=== PATIENT | female | born 1965 | race Caucasian/White ===

== ENCOUNTER → 2017-09-08 | Outpatient (CLI) | payer MEDICARE, OTHER ==
[2017-09-09 10:41] LABS: Candida species (DNA Probe) Negative (NEGATIVE); G. vaginalis (DNA Probe) Positive (NEGATIVE); T. vaginalis (DNA Probe) Negative (NEGATIVE)
== END ==
LOC: LAB SHORT 16:55 → LAB EV 16:55
PROVIDERS: Internal Medicine
DX: N89.8 Other specified noninflammatory disorders of vagina (principal); N30.80 Other cystitis without hematuria
CPT/HCPCS: 87086; 87480; 87510; 87660

== ENCOUNTER → 2018-06-16 | Outpatient (CLI) | payer MEDICARE, OTHER ==
[~2018-06-16] MED LIST: BACL20; CLON.5 PO; ESCI20 PO; Miralax17 GM PO; PROBIOTIC1 EAC3 PO; TECFIDERA1 EACH PO; TIZANIDINE HCL4 MG PO
[2018-06-18 12:10] LABS: Stool Occult Bld Immuno 1 Negative (NEGATIVE)
== END | disposition home or self-care (01) ==
LOC: LAB 13:57 → LAB SHORT 13:57
PROVIDERS: Internal Medicine
DX: Z12.11 Encounter for screening for malignant neoplasm of colon (principal)
CPT/HCPCS: G0328

== ENCOUNTER 2020-08-25 11:16 | Emergency (ER) | payer MEDICARE, OTHER ==
[~2020-08-25] VITALS: Ht 152.4 cm; Wt 63.5 kg
[~2020-08-25 11:16] MED LIST changes: -BACL20; +BACL20 PO; +TIZA4; -TIZANIDINE HCL4 MG PO
[2020-08-25] MEDS ORDERED: HYDR1TAB94 PO (14:06)
== END 2020-08-25 15:50 | disposition home or self-care (01) ==
LOC: ER 11:16
DX: S70.01XA Contusion of right hip, initial encounter (principal); S80.01XA Contusion of right knee, initial encounter; Z79.899 Other long term (current) drug therapy; W05.0XXA Fall from non-moving wheelchair, initial encounter
CPT/HCPCS: 73502; 73562-RT; 99283-25; A9270

== ENCOUNTER 2021-06-05 11:56 | Emergency (ER) | payer MEDICARE, OTHER ==
[~2021-06-05] VITALS: Ht 152.4 cm; Wt 65.8 kg
[~2021-06-05 11:56] MED LIST changes: +HYDR1TAB94 PO
[2021-06-05 13:11] LABS: Influenza A, PCR NEGATIVE (NEGATIVE); Influenza B, PCR NEGATIVE (NEGATIVE); Resp Syncytial Virus, PCR NEGATIVE (NEGATIVE)
[2021-06-05 13:13] LABS: SARS-Cov-2 (COVID-19) PCR, MMC POSITIVE (NEGATIVE)
== END 2021-06-05 17:23 | disposition home or self-care (01) ==
LOC: ER 11:56
PROVIDERS: Emergency Medicine
DX: U07.1 COVID-19 (principal); Z79.899 Other long term (current) drug therapy
CPT/HCPCS: 0241U; 99283

== ENCOUNTER → 2021-07-14 | Outpatient (CLI) | payer MEDICARE, OTHER ==
[2021-07-14 15:58] LABS: BASOPHILS ABSOLUTE AUTO 0.07 K/mm3 (0.00-0.23); BASOPHILS PERCENT AUTO 2 % (0-2); EOSINOPHILS ABSOLUTE AUTO 0.23 K/mm3 (0.00-0.68); EOSINOPHILS PERCENT AUTO 6 % (0-6); Hematocrit 41.6 % (33.0-51.0); Hemoglobin 12.9 g/dL (11.5-16.0); IMMATURE GRAN ABSOLUTE AUTO 0.01 K/mm3 (0.00-0.10); IMMATURE GRAN PERCENT AUTO 0 % (0-1); LYMPHOCYTES ABSOLUTE AUTO 0.87 K/mm3 (0.84-5.20); LYMPHOCYTES PERCENT AUTO 24 % (21-46); MONOCYTES ABSOLUTE AUTO 0.55 K/mm3 (0.16-1.47); MONOCYTES PERCENT AUTO 15 % (4-13); Mean Corpuscular HGB 28.8 pg (26.0-34.0); Mean Corpuscular Volume 93 fL (80-100); Mean Platelet Volume 9.7 fL (9.1-12.4); NEUTROPHILS ABSOLUTE AUTO 1.86 K/mm3 (1.96-9.15); NEUTROPHILS PERCENT AUTO 52 % (41-73); Platelet Count 323 K/mm3 (150-400); RDW Coefficient Variation 13.1 % (11.7-14.2); RDW Standard Deviation 44.3 fL (35.1-46.3); Red Blood Cell Count 4.48 M/mm3 (3.80-5.20); White Blood Cell Count 3.59 K/mm3 (4.00-11.30)
[2021-07-14 22:21] LABS: Alanine Aminotransfer (ALT/SGP 22 U/L (12-78); Albumin/Globulin Ratio 0.7 (0.8-1.8); Alk Phos 128 U/L (50-136); Anion Gap 3 mmol/L (6-16); Aspartate Aminotrans (AST/SGOT 15 U/L (12-37); Bilirubin, Total 0.2 mg/dL (0.1-1.0); Blood Urea Nitrogen 17 mg/dL (8-24); Bun/Creatinine Ratio 24.4 (12.0-20.0); CO2, Blood 31 mmol/L (21-32); Chloride, Blood 105 mmol/L (98-108); Globulin, Blood 4.4 g/dL (2.2-4.0); Glomerular Filtration Rate >60 (60-); Glucose, Blood 117 mg/dL (70-99); Potassium, Blood 3.8 mmol/L (3.5-5.5); Sodium, Blood 139 mmol/L (136-145); Total Protein, Blood 7.4 g/dL (6.4-8.2)
== END | disposition home or self-care (01) ==
LOC: LAB HH 14:42
PROVIDERS: Internal Medicine
DX: G35 Multiple sclerosis (principal); L89.152 Pressure ulcer of sacral region, stage 2
CPT/HCPCS: 80053; 85025

== ENCOUNTER 2021-09-11 17:43 | Emergency (ER) | payer MEDICARE, OTHER ==
[~2021-09-11] VITALS: Ht 152.4 cm; Wt 63.5 kg
[2021-09-11] MEDS ORDERED: Nitrofurantoin100 M1 PO (18:27)
[2021-09-11] MEDS ORDERED: DIMETHYL FUMAR240 MG PO (18:28)
[2021-09-11 18:59] LABS: Source, Urine Straight Cath
[2021-09-11 19:08] LABS: Appearance, Urine Turbid (Clear); Bilirubin, Urine Neg (Neg); Blood, Urine 5+ (Neg); Color, Urine Yellow (P-Yellow); Glucose Qualitative, Urine Neg (Neg); Ketones, Urine Neg (Neg); Leukocyte Esterase, Urine 3+ (Neg); Nitrite, Urine Neg (Neg); Protein, Urine 3+ (Neg); Specific Gravity, Urine 1.015 (1.003-1.022); Urobilinogen, Urine NORM (Normal)
[2021-09-11 19:14] LABS: Red Blood Cells, Urine TNTC /hpf (0-2); White Blood Cells, Urine TNTC /hpf (0-5)
[2021-09-11 19:15] LABS: Bacteria Many /hpf; Hyaline Casts 0-2 /lpf (0-2); Renal Epithelial Rare /hpf (0-Rare); Squamous Epithelial Cells Many /hpf (Few); Transitional Epithelial Cells Few /hpf (0-Rare)
[2021-09-11 19:32] LABS: BASOPHILS ABSOLUTE AUTO 0.05 K/mm3 (0.00-0.23); BASOPHILS PERCENT AUTO 1 % (0-2); EOSINOPHILS ABSOLUTE AUTO 0.12 K/mm3 (0.00-0.68); EOSINOPHILS PERCENT AUTO 2 % (0-6); Hemoglobin 13.8 g/dL (11.5-16.0); IMMATURE GRAN ABSOLUTE AUTO 0.08 K/mm3 (0.00-0.10); IMMATURE GRAN PERCENT AUTO 2 % (0-1); LYMPHOCYTES ABSOLUTE AUTO 0.85 K/mm3 (0.84-5.20); LYMPHOCYTES PERCENT AUTO 17 % (21-46); MONOCYTES ABSOLUTE AUTO 0.67 K/mm3 (0.16-1.47); MONOCYTES PERCENT AUTO 14 % (4-13); Mean Corpuscular HGB 29.3 pg (26.0-34.0); Mean Corpuscular HGB Conc 32.9 g/dL (31.5-36.5); Mean Corpuscular Volume 89 fL (80-100); Mean Platelet Volume 9.1 fL (9.1-12.4); NEUTROPHILS ABSOLUTE AUTO 3.16 K/mm3 (1.96-9.15); NEUTROPHILS PERCENT AUTO 64 % (41-73); Platelet Count 256 K/mm3 (150-400); RDW Coefficient Variation 12.9 % (11.7-14.2); RDW Standard Deviation 42.3 fL (35.1-46.3); Red Blood Cell Count 4.71 M/mm3 (3.80-5.20); White Blood Cell Count 4.93 K/mm3 (4.00-11.30)
[2021-09-11 19:49] LABS: Albumin/Globulin Ratio 0.6 (0.8-1.8); Bilirubin, Total 0.3 mg/dL (0.1-1.0); Bun/Creatinine Ratio 46.2 (12.0-20.0); Calcium, Blood 9.2 mg/dL (8.5-10.1); Creatinine, Blood 0.52 mg/dL (0.40-1.00); Globulin, Blood 4.9 g/dL (2.2-4.0); Potassium, Blood 4.2 mmol/L (3.5-5.5); Total Protein, Blood 7.9 g/dL (6.4-8.2)
[2021-09-11] MEDS ORDERED: CEFD300 PO (21:52)
== END 2021-09-11 22:57 | disposition home or self-care (01) ==
LOC: ER 17:43
PROVIDERS: Emergency Medicine
DX: N13.6 Pyonephrosis (principal); G35 Multiple sclerosis; Z79.899 Other long term (current) drug therapy
CPT/HCPCS: 51701; 74177; 80053; 81001; 83690; 85025; 87086; J0696; J1885; Q9967

== ENCOUNTER → 2022-02-24 | Outpatient (CLI) | payer MEDICARE, OTHER ==
[~2022-02-24] MED LIST changes: +CEFD300 PO; +DIMETHYL FUMAR240 MG PO; +Nitrofurantoin100 M1 PO
[2022-02-25 10:05] LABS: Candida species (DNA Probe) Negative (NEGATIVE); G. vaginalis (DNA Probe) Negative (NEGATIVE); T. vaginalis (DNA Probe) Negative (NEGATIVE)
== END ==
LOC: LAB SHORT 14:20 → LAB 14:20
PROVIDERS: Family Medicine
DX: N89.8 Other specified noninflammatory disorders of vagina (principal); R39.9 Unspecified symptoms and signs involving the genitourinary system
CPT/HCPCS: 87086; 87480; 87510; 87660

== ENCOUNTER 2022-08-01 16:30 | Emergency (ER) | payer MEDICARE, OTHER ==
[~2022-08-01] VITALS: Ht 152.4 cm; Wt 54.4 kg
[2022-08-01] MEDS ORDERED: ESCI20 PO (16:52)
[2022-08-01 17:38] LABS: Source, Urine Straight Cath
[2022-08-01 17:48] LABS: BASOPHILS ABSOLUTE AUTO 0.06 K/mm3 (0.00-0.23); BASOPHILS PERCENT AUTO 1 % (0-2); EOSINOPHILS ABSOLUTE AUTO 0.18 K/mm3 (0.00-0.68); EOSINOPHILS PERCENT AUTO 3 % (0-6); Hematocrit 40.7 % (33.0-51.0); Hemoglobin 13.5 g/dL (11.5-16.0); IMMATURE GRAN ABSOLUTE AUTO 0.02 K/mm3 (0.00-0.10); IMMATURE GRAN PERCENT AUTO 0 % (0-1); LYMPHOCYTES ABSOLUTE AUTO 0.86 K/mm3 (0.84-5.20); LYMPHOCYTES PERCENT AUTO 13 % (21-46); MONOCYTES ABSOLUTE AUTO 0.99 K/mm3 (0.16-1.47); MONOCYTES PERCENT AUTO 15 % (4-13); Mean Corpuscular HGB 29.8 pg (26.0-34.0); Mean Corpuscular HGB Conc 33.2 g/dL (31.5-36.5); Mean Corpuscular Volume 90 fL (80-100); Mean Platelet Volume 9.3 fL (9.1-12.4); NEUTROPHILS ABSOLUTE AUTO 4.73 K/mm3 (1.96-9.15); NEUTROPHILS PERCENT AUTO 69 % (41-73); Platelet Count 324 K/mm3 (150-400); RDW Coefficient Variation 13.2 % (11.7-14.2); RDW Standard Deviation 43.4 fL (35.1-46.3); Red Blood Cell Count 4.53 M/mm3 (3.80-5.20); White Blood Cell Count 6.84 K/mm3 (4.00-11.30)
[2022-08-01 17:52] LABS: Appearance, Urine Turbid (Clear); Bilirubin, Urine Neg (Neg); Blood, Urine 5+ (Neg); Color, Urine Yellow (P-Yellow); Glucose Qualitative, Urine Neg (Neg); Ketones, Urine 2+ (Neg); Leukocyte Esterase, Urine 3+ (Neg); Nitrite, Urine Pos (Neg); Protein, Urine 3+ (Neg); Urobilinogen, Urine NORM (Normal)
[2022-08-01 18:01] LABS: Albumin, Blood 2.7 g/dL (3.4-5.0); Albumin/Globulin Ratio 0.6 (0.8-1.8); Bilirubin, Total 0.3 mg/dL (0.1-1.0); Bun/Creatinine Ratio 42.6 (12.0-20.0); Creatinine, Blood 0.52 mg/dL (0.40-1.00); Globulin, Blood 4.4 g/dL (2.2-4.0); Potassium, Blood 3.8 mmol/L (3.5-5.5); Total Protein, Blood 7.1 g/dL (6.4-8.2)
[2022-08-01 18:06] LABS: Red Blood Cells, Urine TNTC /hpf (0-2); White Blood Cells, Urine TNTC /hpf (0-5)
[2022-08-01 18:09] LABS: Bacteria Many /hpf; Mucus Light (0-Heavy); Squamous Epithelial Cells Rare /hpf (Few)
[2022-08-01] MEDS ORDERED: CIPR500 PO (19:21)
[2022-08-01 20:00] VITALS: BP 105/80
[2022-08-05] MEDS ORDERED: CRANBERRY125 MG PO (12:29)
== END 2022-08-01 20:08 | disposition home or self-care (01) ==
LOC: ER 16:30
PROVIDERS: Student in an Organized Health Care Education/Training Program
DX: N12 Tubulo-interstitial nephritis, not specified as acute or chronic (principal); R59.0 Localized enlarged lymph nodes; G35 Multiple sclerosis; Z79.899 Other long term (current) drug therapy
CPT/HCPCS: 36415; 80053; 81001; 83690; 85025; 87086; 93005; 93010; 96361-59; 96365-59; 96375-59; 99284-25; A9270; J0696; J1885; J2405; J7030

== ENCOUNTER 2022-08-06 11:37 | Day surgery (SDC) | payer MEDICARE, OTHER ==
[~2022-08-06 11:37] MED LIST changes: +CIPR500 PO; +CRANBERRY125 MG PO
[2022-08-06 13:21] VITALS: BP 123/80
--- NOTE | 2022-08-06 13:24 | NUR ---
History, Chart, Medications and Allergies reviewed before start of procedure. Lungs clear T/O to Auscultation. Patient confirms NPO status and agrees with scheduled surgery. Pre-Op teaching done. Pt verbalizes understanding.
--- NOTE | 2022-08-06 14:23 | NUR ---
08/06/22 [address] PEARCE, SEE ANESTHESIA RECORDS.
[2022-08-06 15:16] VITALS: BP 139/99
--- NOTE | 2022-08-06 15:19 | NUR ---
PT WOKE FROM PROCEDURE AND IMMEDIATELY BEGAN TO FEEL NAUSEOUS. PT VOMITTED ONE TIME IN STEP DOWN, I RECEIVED A VERBAL ORDER FOR 4MG ZOFRAN FROM DR. PEARCE. PT MEDICATED AND STILL REPORTING 9/10 NAUSEA.
[2022-08-06 15:31] VITALS: BP 124/88
--- NOTE | 2022-08-06 16:16 | NUR ---
PT RESPONDED WELL TO ANTINAUSEA MEDICATION AND REPOSITIONING. PT REPORTS BEING BACK TO BASELINE NAUSEA (2/10) SIMILAR TO BASELINE BEFORE COMING IN FOR PROCEDURE FOR MANY DAYS/WEEKS. ALL BELONGINGS RETURNED TO PATIENT. Discharge instructions reviewed with patient. Patient verbalizes understanding. Copy given to patient to take home. Patient States Post-Procedure ride home has been arranged. Discharged via wheelchair to private car for ride home.
== END 2022-08-06 23:00 | disposition home or self-care (01) ==
LOC: ORSCMMR 11:37 → ORSCSDS 11:45 → ORSCMMR 23:00
PROVIDERS: Internal Medicine Gastroenterology
PROC: 0DB98ZX Excision of Duodenum, Via Natural or Artificial Opening Endoscopic, Diagnostic (ICD-10-PCS; principal; 2022-08-06 08:45)
DX: K31.89 Other diseases of stomach and duodenum (principal); K29.80 Duodenitis without bleeding; R11.2 Nausea with vomiting, unspecified; K22.10 Ulcer of esophagus without bleeding; R93.3 Abnormal findings on diagnostic imaging of other parts of digestive tract; G35 Multiple sclerosis; Z80.0 Family history of malignant neoplasm of digestive organs; Z79.899 Other long term (current) drug therapy
CPT/HCPCS: 88305; J2405; J2704; J7120

== ENCOUNTER → 2023-01-31 | Outpatient (CLI) | payer MEDICARE, OTHER ==
[2023-01-31 20:14] LABS: Albumin, Blood 1.1 g/dL (3.4-5.0); Albumin/Globulin Ratio 0.3 (0.8-1.8); Bilirubin, Total 0.2 mg/dL (0.1-1.0); Bun/Creatinine Ratio 37.1 (12.0-20.0); Calcium, Blood 7.5 mg/dL (8.5-10.1); Creatinine, Blood 0.49 mg/dL (0.40-1.00); Globulin, Blood 3.5 g/dL (2.2-4.0); Potassium, Blood 3.7 mmol/L (3.5-5.5); Total Protein, Blood 4.6 g/dL (6.4-8.2)
== END ==
LOC: LAB 15:35 → LAB SHORT 15:35
PROVIDERS: Family Medicine
DX: R60.1 Generalized edema (principal)
CPT/HCPCS: 80053; 83880

== ENCOUNTER → 2023-02-15 | Outpatient (CLI) | payer MEDICARE, OTHER ==
[2023-02-15 17:31] LABS: Albumin, Blood 1.1 g/dL (3.4-5.0); Albumin/Globulin Ratio 0.3 (0.8-1.8); Bilirubin, Total 0.2 mg/dL (0.1-1.0); Bun/Creatinine Ratio 68.5 (12.0-20.0); Calcium, Blood 7.2 mg/dL (8.5-10.1); Creatinine, Blood 0.47 mg/dL (0.40-1.00); Globulin, Blood 3.9 g/dL (2.2-4.0); Potassium, Blood 3.2 mmol/L (3.5-5.5); Prealbumin, Blood 12.1 mg/dL (20.0-40.0)
== END | disposition home or self-care (01) ==
LOC: LAB 15:35 → LAB SHORT 15:35
PROVIDERS: Family Medicine
DX: Z51.81 Encounter for therapeutic drug level monitoring (principal); R60.1 Generalized edema
CPT/HCPCS: 80053; 83735; 84134

== ENCOUNTER 2023-02-26 20:05 | Inpatient (IN) | payer MEDICARE, OTHER ==
[~2023-02-26] VITALS: Ht 152.4 cm; Wt 43.0 kg
[2023-02-26 20:49] LABS: Source, Urine Straight Cath
[2023-02-26 20:52] LABS: Appearance, Urine Turbid (Clear); Bilirubin, Urine Neg (Neg); Blood, Urine 5+ (Neg); Color, Urine Brown (P-Yellow); Glucose Qualitative, Urine Neg (Neg); Ketones, Urine Neg (Neg); Leukocyte Esterase, Urine 3+ (Neg); Nitrite, Urine Pos (Neg); Protein, Urine 3+ (Neg); Specific Gravity, Urine 1.015 (1.003-1.022); Urobilinogen, Urine NORM (Normal)
[2023-02-26 20:59] LABS: Base Excess Venous 14.2 mmol/L; Bicarbonate Venous 36.9 mmol/L (24.0-30.0); PCO2 Venous 37.2 mmHg (38-42); pH Blood Venous 7.59 (7.34-7.37)
[2023-02-26 21:03] LABS: BASOPHILS ABSOLUTE AUTO 0.03 K/mm3 (0.00-0.23); BASOPHILS PERCENT AUTO 0 % (0-2); EOSINOPHILS PERCENT AUTO 0 % (0-6); Hematocrit 26.6 % (33.0-51.0); Hemoglobin 9.1 g/dL (11.5-16.0); IMMATURE GRAN PERCENT AUTO 1 % (0-1); LYMPHOCYTES ABSOLUTE AUTO 0.64 K/mm3 (0.84-5.20); LYMPHOCYTES PERCENT AUTO 4 % (21-46); MONOCYTES ABSOLUTE AUTO 0.97 K/mm3 (0.16-1.47); MONOCYTES PERCENT AUTO 6 % (4-13); Mean Corpuscular HGB 32.5 pg (26.0-34.0); Mean Corpuscular HGB Conc 34.2 g/dL (31.5-36.5); Mean Corpuscular Volume 95 fL (80-100); Mean Platelet Volume 9.3 fL (9.1-12.4); NEUTROPHILS ABSOLUTE AUTO 15.43 K/mm3 (1.96-9.15); NEUTROPHILS PERCENT AUTO 89 % (41-73); Platelet Count 186 K/mm3 (150-400); RDW Coefficient Variation 13.9 % (11.7-14.2); RDW Standard Deviation 48.4 fL (35.1-46.3); White Blood Cell Count 17.27 K/mm3 (4.00-11.30)
[2023-02-26 21:04] LABS: Bacteria Rare /hpf; Red Blood Cells, Urine 0-2 /hpf (0-2); Squamous Epithelial Cells Not Seen /hpf (Few); Transitional Epithelial Cells Mod /hpf (0-Rare); White Blood Cells, Urine TNTC /hpf (0-5)
[2023-02-26 21:37] LABS: Albumin, Blood 0.8 g/dL (3.4-5.0); Albumin/Globulin Ratio 0.2 (0.8-1.8); Bilirubin, Total 0.3 mg/dL (0.1-1.0); Bun/Creatinine Ratio 78.4 (12.0-20.0); Creatinine, Blood 0.71 mg/dL (0.40-1.00); Globulin, Blood 3.9 g/dL (2.2-4.0); Potassium, Blood 3.6 mmol/L (3.5-5.5); Total Protein, Blood 4.7 g/dL (6.4-8.2)
[2023-02-26 22:12] LABS: Influenza A, PCR NEGATIVE (NEGATIVE); Influenza B, PCR NEGATIVE (NEGATIVE); Resp Syncytial Virus, PCR NEGATIVE (NEGATIVE); SARS-Cov-2 (COVID-19) PCR, MMC NEGATIVE (NEGATIVE)
[2023-02-27] VITALS (28 sets, daily range): BP systolic 81–124; BP diastolic 59–88
[2023-02-27 04:11] LABS: Hematocrit 26.5 % (33.0-51.0); Hemoglobin 8.9 g/dL (11.5-16.0); Mean Corpuscular HGB 32.2 pg (26.0-34.0); Mean Corpuscular HGB Conc 33.6 g/dL (31.5-36.5); Mean Corpuscular Volume 96 fL (80-100); Mean Platelet Volume 9.5 fL (9.1-12.4); Platelet Count 224 K/mm3 (150-400); RDW Coefficient Variation 14.1 % (11.7-14.2); RDW Standard Deviation 49.2 fL (35.1-46.3); Red Blood Cell Count 2.76 M/mm3 (3.80-5.20); White Blood Cell Count 19.75 K/mm3 (4.00-11.30)
[2023-02-27 04:29] LABS: Bun/Creatinine Ratio 77.8 (12.0-20.0); Calcium, Blood 7.5 mg/dL (8.5-10.1); Creatinine, Blood 0.59 mg/dL (0.40-1.00); Potassium, Blood 3.2 mmol/L (3.5-5.5)
[2023-02-27 04:45] LABS: BAND PERCENT MAN 3 % (0-8); BASOPHILS PERCENT MAN 0 % (0-2); EOSINOPHILS PERCENT MAN 0 % (0-6); LYMPHOCYTES ABSOLUTE MAN 0.59 K/mm3 (0.84-5.20); LYMPHOCYTES PERCENT MAN 3 % (21-46); MONOCYTES ABSOLUTE MAN 0.39 K/mm3 (0.16-1.47); MONOCYTES PERCENT MAN 2 % (4-13); NEUTROPHILS ABSOLUTE MAN 18.76 K/mm3 (1.96-9.15); SEG NEUTROPHILS PERCENT MAN 92 % (41-73); TOTAL CELLS COUNTED 100
--- NOTE | 2023-02-27 06:07 | NUR ---
SHIFT SUMMARY: TRANSFERED FROM ED. A&OX1. RESPONDS TO QUESTIONS AND VERBAL STIMULI BUT RESPONSES ARE LABILE IN ACURACY TO QUESTION ASKED. PLACED ON AIRVO 40L/40% ON ADMIT TO UNIT DUE TO SATS DROPPING INTO 70'S. PT DOES NOT APPEAR TACHYNIC OR CYANOTIC. AFTER PLACED ON AIRVO SATS IN MID 90'S. SBP'S IN 90 TO LOW 100'S, MAP > 65. HR 110'S-130'S SINUS TACH. PT HAS NO COMPLAINTS OF CHEST PAIN/PRESSURE. GENERLIZED 3+ PITTING EDEMA NOTED. DR. MAHAJAN INFORMED, WILL HOLD OFF ON DIURETICS AT THIS TIME DUE TO SOFT BP'S PER DR. MAHAJAN'S INSTRUCTIONS. PT HAS MULTIPLE PRESSURE WOUNDS REDRESSED WITH PICTURES PLACED IN CHART. PT FREQUENTLY CALLING OUT COMPLAINING OF PAIN IN COCCYX AREA. FLOATED, REPOSITIONED Q1-2H. DECLINING ANY PAIN MEDICATION AT THIS TIME. WILL CONTINUE TO MONITOR. CALL LIGHT IN REACH. BED IN LOW POSITION WITH ALARM ON.
--- NOTE | 2023-02-27 18:06 | NUR ---
SHIFT SUMMARY PT REMAINS ALERT AND ORIENTED TO SELF. PT WILL ANSWER YES OR NO QUESTIONS APPROPRIATELY AT TIMES, BUT UNABLE TO HOLD APPROPRIATE CONVERSATION. PT TITRATED DOWN FROM [facility] TO 2L NC WITH SATS >90%. PT HAS HAD LOOSE PRODUCTIVE COUGH AND REQUIRES SUCTIONING TO HELP CLEAR SECRETIONS. FREQUENT ORAL CARE PROVIDED. LS COARSE ON THE RIGHT AND DIM ON THE LEFT. BP HAS BEEN SOFT MOST OF SHIFT AND HR HAS BEEN SINUS TACH 130'S ALL SHIFT. DR. BONILLA AWARE. ONLY 100ML OF URINE OUTPUT THIS SHIFT. BLADDER SCAN DONE AND 100ML OF URINE IN BLADDER. DR. BONILLA NOTIFIED AND ORDERS FOR 1L BAG OF LR TO INFUSE. BLE WITH 4+ PITTING EDEMA HAVE BEEN FLOATED ON PILLOWS. PT REPOSITIONED Q2H AND MORE OFTEN SHE REQUESTED. WOUNDS WITH DRESSINGS C/D/I. PT'S FATHER AT BEDSIDE THIS SHIFT AND UPDATED ON PLAN OF CARE. PALLIATIVE CARE CALLED AND WILL SEE PT IN THE AM. WILL CONTINUE TO MONITOR AND REPORT TO ONCOMING RN
[2023-02-28] VITALS (14 sets, daily range): BP systolic 82–92; BP diastolic 59–73
[2023-02-28 04:35] LABS: BASOPHILS ABSOLUTE AUTO 0.02 K/mm3 (0.00-0.23); BASOPHILS PERCENT AUTO 0 % (0-2); EOSINOPHILS ABSOLUTE AUTO 0.01 K/mm3 (0.00-0.68); EOSINOPHILS PERCENT AUTO 0 % (0-6); Hematocrit 27.5 % (33.0-51.0); Hemoglobin 9.2 g/dL (11.5-16.0); IMMATURE GRAN PERCENT AUTO 1 % (0-1); LYMPHOCYTES ABSOLUTE AUTO 0.66 K/mm3 (0.84-5.20); LYMPHOCYTES PERCENT AUTO 4 % (21-46); MONOCYTES ABSOLUTE AUTO 0.96 K/mm3 (0.16-1.47); MONOCYTES PERCENT AUTO 7 % (4-13); Mean Corpuscular HGB 32.5 pg (26.0-34.0); Mean Corpuscular HGB Conc 33.5 g/dL (31.5-36.5); Mean Corpuscular Volume 97 fL (80-100); Mean Platelet Volume 9.8 fL (9.1-12.4); NEUTROPHILS ABSOLUTE AUTO 13.11 K/mm3 (1.96-9.15); NEUTROPHILS PERCENT AUTO 88 % (41-73); Platelet Count 174 K/mm3 (150-400); RDW Coefficient Variation 14.2 % (11.7-14.2); RDW Standard Deviation 50.5 fL (35.1-46.3); Red Blood Cell Count 2.83 M/mm3 (3.80-5.20); White Blood Cell Count 14.86 K/mm3 (4.00-11.30)
[2023-02-28 04:56] LABS: Albumin, Blood 0.9 g/dL (3.4-5.0); Albumin/Globulin Ratio 0.2 (0.8-1.8); Bilirubin, Total 0.3 mg/dL (0.1-1.0); Bun/Creatinine Ratio 65.9 (12.0-20.0); Calcium, Blood 8.1 mg/dL (8.5-10.1); Creatinine, Blood 0.55 mg/dL (0.40-1.00); Potassium, Blood 3.9 mmol/L (3.5-5.5); Total Protein, Blood 4.9 g/dL (6.4-8.2)
--- NOTE | 2023-02-28 07:31 | NUR ---
SHIFT SUMMARY: A&OX1-2, ABLE TO ANSWER QUESTION WITH ONE WORD RESPONSES. HR REMAINS 120-130'S. DENIES FEELING CHEST PAIN/PRESSURE. O2 SATS MAINTED > 92% ON 2 LPM VIA NC. REPORTS FEELING MINIMAL SOB, RESPIRAITONS EVEN AND UNLABORED. TURN Q2H TO PREVENT SKIN BREAKDOWN. PT COMPLAINS OF PAIN WHEN MOVING, DENIES PAIN WHEN STATIONARY. VOIDING DARK, CLOUDY, INCONTINENT URINE. PUREWICK IN PLACE BUT LEAKING INTERMITTENTLY. MAINTINANCE FLUIDS COMPLETED, NOW SL. BP'S REMAIN SOFT WITH MAP > 65, ASYMPTOMATIC. CALL LIGHT IN REACH. BED IN LOW POSITION.
--- NOTE | 2023-02-28 11:04 | NUR ---
UPDATE 02 SATS DOWN IN THE LOW 80'S. ATTEMPTED TO SUCTION PT TO HELP CLEAR AIRWAY. O2 INCREASED TO 5L NC. SATS SITTING AT 88%. PT LETHARGIC AND NOT PRODUCING COUGH WHEN ASKED. PT SAT UP. DR. BONILLA CALLED AND NOTIFIED AND WILL BE IN TO TALK WITH PT'S FATHER. WILL CONTINUE TO MONITOR CLOSELY
--- NOTE | 2023-02-28 11:37 | NUR ---
UPDATE PT PLACED ON NONREBREATHER WITH SATS IMPROVING TO LOW 90'S. DR. BONILLA AT BEDSIDE TALKING WITH FATHER. WILL CONTINUE TO MONITOR CLOSELY
--- NOTE | 2023-02-28 14:38 | NUR ---
UPDATE ENTERED ROOM DUE TO DESATURATION ALARM. SATS LOW 80'S. PT SUCTIONED MULTIPLE TIMES TO CLEAR THICK SECRETIONS. FAMILY MEMBER AT BEDSIDE EDUCATED ON SUCTIONING AND THAT PT IS MAXED OUT ON NON REBREATHER FOR OXYGEN. DR. BONILLA STATES THAT BIPAP OR CPAP ARE CONTRAINDICATED FOR THIS PT. PT CONTINUES TO BE IN THE LOW 80'S FOR 10 MINUTES DESPITE MORE SUCTIONING. DR. BONILLA CALLED AND AT BEDSIDE. PT CONTINUES TO HAVE O2 SATS IN THE LOW 80'S. PT'S FATHER STATES HE WOULD NOT WANT TO TRANSITION TO COMFORT CARE YET AND WOULD LIKE TO GIVE THE PATIENT MORE TIME TO SEE IF SHE "WILL COME OUT OF THIS". FATHER STATES HE WOULD LIKE TO TRY HYPNOSIS TO GET HER TO BREATHE. THIS RN CONTINUES TO STAY IN ROOM AND MONITOR PATIENT CLOSELY. HR ELEVATED AT 140'S.
[2023-03-01] VITALS (9 sets, daily range): BP systolic 79–123; BP diastolic 59–96
[2023-03-01 04:25] LABS: BASOPHILS ABSOLUTE AUTO 0.02 K/mm3 (0.00-0.23); BASOPHILS PERCENT AUTO 0 % (0-2); EOSINOPHILS ABSOLUTE AUTO 0.01 K/mm3 (0.00-0.68); EOSINOPHILS PERCENT AUTO 0 % (0-6); Hematocrit 26.4 % (33.0-51.0); Hemoglobin 8.6 g/dL (11.5-16.0); IMMATURE GRAN ABSOLUTE AUTO 0.13 K/mm3 (0.00-0.10); IMMATURE GRAN PERCENT AUTO 1 % (0-1); LYMPHOCYTES ABSOLUTE AUTO 0.67 K/mm3 (0.84-5.20); LYMPHOCYTES PERCENT AUTO 5 % (21-46); MONOCYTES ABSOLUTE AUTO 0.99 K/mm3 (0.16-1.47); MONOCYTES PERCENT AUTO 7 % (4-13); Mean Corpuscular HGB 31.9 pg (26.0-34.0); Mean Corpuscular HGB Conc 32.6 g/dL (31.5-36.5); Mean Corpuscular Volume 98 fL (80-100); Mean Platelet Volume 9.9 fL (9.1-12.4); NEUTROPHILS ABSOLUTE AUTO 12.87 K/mm3 (1.96-9.15); NEUTROPHILS PERCENT AUTO 88 % (41-73); Platelet Count 214 K/mm3 (150-400); RDW Coefficient Variation 14.4 % (11.7-14.2); RDW Standard Deviation 51.7 fL (35.1-46.3); White Blood Cell Count 14.69 K/mm3 (4.00-11.30)
--- NOTE | 2023-03-01 05:08 | NUR ---
ACCOUNT DEVELOPMENT EXECUTIVE SUMMARY PT AWAKENS TO VOICE AND RESPONDS TO QUESTIONS IN A WHISPER. NOTABLE PITTING EDEMA OF BLE AND BUE, WORSE ON LEFT HAND. IVS WERE CHECKED FOR PATENCY. PT GRIMACES WITH REPOSITIONING AND WAS OFFERED IV PRN PAIN MEDICATIONS BUT PT DID DECLINE. PUREWICK REMAINED IN PLACED WITH MINIMAL RAY URINE OUTPUT. REMAINED TACHYCARDIC WITH RATE 120S-130S, AND HYPOTENSIVE BUT STABLE WITH MAPS CONSISTENTLY >70S. PT WAS TAKEN OFF NRB MASK THIS SHIFT AND HAS REMAINED SPO2 HIGH 90S ON 5LO2 VIA NC. SECRETIONS WERE MANAGEABLE AND MINIMAL SUCTION NEEDED FOR COMFORT DURING ORAL CARE. NO OTHER SIGNIFICANT ACUTE CHANGES THIS SHIFT.
[2023-03-01 05:10] LABS: Albumin, Blood 0.9 g/dL (3.4-5.0); Albumin/Globulin Ratio 0.2 (0.8-1.8); Bilirubin, Total 0.4 mg/dL (0.1-1.0); Bun/Creatinine Ratio 63.9 (12.0-20.0); Calcium, Blood 7.8 mg/dL (8.5-10.1); Creatinine, Blood 0.49 mg/dL (0.40-1.00); Globulin, Blood 3.9 g/dL (2.2-4.0); Potassium, Blood 3.5 mmol/L (3.5-5.5); Total Protein, Blood 4.8 g/dL (6.4-8.2)
--- NOTE | 2023-03-01 17:25 | NUR ---
SHIFT SUMMARY. PT HAS BEEN PLEASANT AND COOPERATIVE WITH CARE THROUGHOUT SHIFT. MENTATION SOMEWHAT DIFFICULT TO COMPLETELY DETERMINE DUE TO PT BEING DIFFICULT TO UNDERSTAND AND NOT ALWAYS SPEAKING IN FULL SENTENCES. MENTATION APPEARS TO FLUCTUATE SOMEWHAT. PT HAS CONTINUED TO DENY PAIN OR DISCOMFORT. BP HAS BEEN SOFT THROUGHOUT SHIFT BUT MAP HAS REMAINED >65. Q2 TURNS. WOUND CARE NURSE ORDERED MEDIHONEY WHICH SHE INFORMED CAN BE APPLIED AT NEXT DRESSING CHANGE. DRESSINGS CHANGES 02/28 AND WOUND CARE NURSE RECOMMENDED CHANGES Q 3 DAYS. PALLIATIVE CARE RN SPOKE WITH PT AND FAMILY AROUND 1700. INFORMED THIS NURSE THAT FATHER WOULD LIKE MRI TO CONFIRM MS PROGRESSION BUT WAS UNRECEPTIVE TO COMFORT CARE RECOMMENDATIONS AT THIS TIME. ORAL CARE COMPLETED Q 2 HOURS. SWALLOW EVAL PERFORMED THIS MORNING AND PT APPEARED TO ASPIRATE ON VERY SMALL AMOUNT OF FLUID, REMAINS STRICT NPO. BEDREST. PUREWICK IN PLACE THROUGHOUT SHIFT, PUREWICK DEVICE CHANGED ONCE EARLY THIS AFTERNOON. PT HAS SATURATED WELL ON SUPPLEMENTAL OXYGEN VIA NC THROUGHOUT SHIFT. FLUIDS INFUSING AT THIS TIME. BED LOCKED IN LOWEST POSITION. CALL LIGHT LEFT WITHIN REACH.
--- NOTE | 2023-03-01 17:35 | NUR ---
Spoke with Primary RN Diane and discussed case prior to visiting with Pt. ST evaluated Pt and is recommended for Pt to be NPO. Pt resting in bed and is pleasantly confused. Pt's father Nikhil and Pt's friend/caregiver Sheela at bedside. Offered therapeutic listening as Don discusses life events. Attempted several times to engaged in advanced care planning and eventually some was accomplished. Discussed the potential need to consider G tube and the importance of planning for the future including considering hospice. Addressed some misconceptions of G tube and addressed misconceptions of hospice. Don appears to be in denial of Pt's advanced stage. Don does report willing to consider G tube if recommended. Don reports unwillingness to consider advanced stage without confirmation of MRI. Palliative Care will remain available.
--- NOTE | 2023-03-01 18:44 | NUR ---
ON MOST RECENT BRIEF CHANGE, NOTED WITH JONAH FISHER RN THAT PT HAD INCREASED EDEMA FROM THIS MORNING UP THROUGH HER BACK. CALLED TO NOTIFY DR. YOUNGBLOOD WHO ORDERED DECREASE IN RATE OF FLUID INFUSION FROM 100MLS/HR TO 50MLS/HR. ALSO MENTIONED TO DR. YOUNGBLOOD THAT THIS NURSE WAS ABLE TO SPEAK WITH PALLIATIVE CARE NURSE SHIMON EARLIER WHO MENTIONED THAT THE FATHER WAS INTERESTED IN PERFORMING A MRI TO SHOW PROGRESSION OF MS BEFORE HE WOULD CONSIDER COMFORT CARE MEASURES. DR. YOUNGBLOOD NOTED THAT A MRI WOULD NOT BE HELPFUL IN SHOWING WHAT THE FATHER WANTS TO SEE BUT THAT SHE WILL ADDRESS IT TOMORROW.
--- NOTE | 2023-03-01 22:12 | NUR ---
ASSUMED CARE THIS RN ASSUMED CARE OF PT APPROX 190. BEDSIDE REPORT TAKEN FROM MARGARITA MCLEAN. PT LYING IN BED AWAKE. ALERT & ORIENTED TO SELF AND PLACE, PT ABLE TO TELL THIS RN HER NAME AND THAT SHE IS IN [place]. STATES IT IS THE AND SHE IS UNSURE WHY SHE IS IN THE HOSPITAL. ABLE TO STATE THAT IT IS TUESDAY. ANSWERS YES/NO QUESTIONS APPROPRIATELY, DENIES PAIN. SBP 80'S, HR 120'S. DENIES CHEST PAIN. SPO2 95% ON 6L VIA NC. PO MEDICATIONS HELD DUE TO NPO STATUS PER SPEECH THERAPY RECOMMENDATION. CALL LIGHT WITHIN REACH, BED IN LOWEST POSITION.
--- NOTE | 2023-03-01 23:55 | NUR ---
PT UPDATE THIS RN DISCUSSED PT'S CARE W/ PT W/O PRESENCE OF FAMILY MEMBERS IN ROOM. PT ABLE TO TELL THIS RN THAT SHE "JUST WANTS TO BE COMFORTABLE." WHEN ASKED IF PT WOULD WANT A FEEDING TUBE IF HER DR RECOMMENDED IT, PT STATES "NO, I JUST WANT TO BE COMFORTABLE." PT ALSO STATED THAT SHE DOES NOT WANT ANY BREATHING MASKS OR INVASIVE OPTIONS. ABLE TO ANSWER YES/NO QUESTIONS APPROPRIATELY. PT ABLE TO EXPRESS PAIN IN LEFT ARM AND THE NEED FOR REPOSITIONING. ABLE TO FOLLOW COMMANDS APPROPRIATELY SUCH STICKING OUT TONGUE DURING ORAL CARE. PT TOLD THIS RN THAT SHE LIVES WITH HER DAD AND HE IS HER CAREGIVER. ASKS QUESTIONS ABOUT WHERE HER DAD IS. NO OTHER NEEDS AT THIS TIME, CALL LIGHT WITHIN REACH.
[2023-03-02] VITALS (20 sets, daily range): BP systolic 61–122; BP diastolic 45–100
[2023-03-02 04:50] LABS: BASOPHILS ABSOLUTE AUTO 0.01 K/mm3 (0.00-0.23); BASOPHILS PERCENT AUTO 0 % (0-2); EOSINOPHILS ABSOLUTE AUTO 0.07 K/mm3 (0.00-0.68); EOSINOPHILS PERCENT AUTO 1 % (0-6); Hematocrit 25.6 % (33.0-51.0); Hemoglobin 8.4 g/dL (11.5-16.0); IMMATURE GRAN ABSOLUTE AUTO 0.23 K/mm3 (0.00-0.10); IMMATURE GRAN PERCENT AUTO 2 % (0-1); LYMPHOCYTES ABSOLUTE AUTO 0.84 K/mm3 (0.84-5.20); LYMPHOCYTES PERCENT AUTO 7 % (21-46); MONOCYTES ABSOLUTE AUTO 0.91 K/mm3 (0.16-1.47); MONOCYTES PERCENT AUTO 7 % (4-13); Mean Corpuscular HGB 32.1 pg (26.0-34.0); Mean Corpuscular HGB Conc 32.8 g/dL (31.5-36.5); Mean Corpuscular Volume 98 fL (80-100); Mean Platelet Volume 9.6 fL (9.1-12.4); NEUTROPHILS ABSOLUTE AUTO 10.31 K/mm3 (1.96-9.15); NEUTROPHILS PERCENT AUTO 83 % (41-73); Platelet Count 292 K/mm3 (150-400); RDW Coefficient Variation 14.2 % (11.7-14.2); RDW Standard Deviation 50.4 fL (35.1-46.3); Red Blood Cell Count 2.62 M/mm3 (3.80-5.20); White Blood Cell Count 12.37 K/mm3 (4.00-11.30)
[2023-03-02 05:20] LABS: Albumin/Globulin Ratio 0.3 (0.8-1.8); Bilirubin, Total 0.3 mg/dL (0.1-1.0); Bun/Creatinine Ratio 52.5 (12.0-20.0); Calcium, Blood 7.6 mg/dL (8.5-10.1); Creatinine, Blood 0.44 mg/dL (0.40-1.00); Globulin, Blood 3.7 g/dL (2.2-4.0); Magnesium, Blood 1.7 mg/dL (1.6-2.4); Phosphorus, Blood 2.8 mg/dL (2.5-4.9); Potassium, Blood 3.2 mmol/L (3.5-5.5); Total Protein, Blood 4.7 g/dL (6.4-8.2)
--- NOTE | 2023-03-02 05:22 | NUR ---
END OF SHIFT NOTE NO ACUTE CHANGED FROM ASSUMPTION OF CARE NOTE. PT ORIENTATION REMAINS UNCHANGED. HR 120'S, SINUS TACH ON TELE. BP SOFT, MAP >65. SPO2 >93% ON 6L VIA NC. AFEBRILE. PT DENIES PAIN. REPOSITIONED Q2HR T/O SHIFT. MINIMAL URINE OUTPUT OVERNIGHT, BLADDER SCAN W/ 116. PUREWICK IN PLACE. D51/2NS INFUSING PER EMAR. 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 NO OTHER NEEDS. CALL LIGHT WITHIN REACH, BED IN LOWEST POSITION.
--- NOTE | 2023-03-02 10:52 | NUR ---
Spoke with Dr Scott, Primary RN Tg and discussed case. Plan to meet with Pt's father at 1300 if he is available. Pt is lucid this AM and reporting wanting to focus on comfort and does not want tube feeding. Called and left message with Pt's father with request for a return phone call. Pt resting in bed at time of this PC RN visit. Pt is pleasantly confused during assessment. Pt appears to have poor understanding and is questionable regarding decision making capacity at time of visit. Primary RNs at bedside attempting to start another IV. Palliative Care will F/U with father when he arrives to visit.
--- NOTE | 2023-03-02 11:48 | NUR ---
Case review requested and conducted. Medical history, social matrix, and prognositic indicators reviewed. The principal is a 57 y/o female afflicted with MS, aspirational pneumonia, and other life impacting illnesses. She is listed as DNR with no care escelation preferred. It is reported that her decisional capacity vasciallates, but in her lucid moments she expresses interest in pursuing hospice matriculation. Her NOK and default proxy is less amenable to this approach, and has conveyed tht he would like to digest the information further and reconvene on the matter. Here, it is imperative that we establish a proper balance between respecting the autonomy of patients who are capable of making informed clinical decisions, and protecting those with cognitive impairment. If the principal; in her stable moments, demonstrates the abilities to communicate a choice, to understand relevant data, to appreciate the consequences of the situation, and to reason about these value-laden treatment decisions, then her stipulated preferences must be respected despite variances in family opinion. Put another way; if the patient has indicated her treatment choice; is able to paraphrase disclosed information regarding her medical condition; has the capacity to describe any proposed treatment or non-treatment and its likely outcomes i.e. she comprehends the risks and benefits associated with either path; and she can offer reasons for the selection of her option, then we should align the care plan accordingly. If the principal lacks decisional capacity, then by statutory requirement, we should rely on her proxy for all discussions relating to establishing goals of care. If the family is urging us to provide disproportionate or medically non-beneficial treatment, then we should regroup to have a broader conversation on that topic. Please reach out for additional support, if this is the impasse that we are facing. Thank you for this consult. Ernst Bojorquez ThD, ZHEN
--- NOTE | 2023-03-02 12:16 | NUR ---
LATE NOTE. ASSUMED CARE OF PT AT 0710. PT HAS BEEN RELAXING IN BED MOST OF MORNING, CONTINUES TO DENY PAIN AND REPORT BEING COMFORTABLE WHEN NOT BEING MOVED OR REPOSITIONED. AOX2-3, MENTATION SEEMS TO SHIFT PERIODICALLY WITH PT APPEARING MORE ORIENTED AT TIMES AND LESS ORIENTED AT OTHER TIMES. PT REMAINS ON BEDREST SECONDARY TO ADVANCED MS. BEDSIDE SWALLOW EVAL PERFORMED THIS MORNING AND PT DID BETTER THAN YESTERDAY, BEING CLEARED TO EAT A PUREE DIET WITH THIN LIQUIDS AND PILLS CRUSHED IN APPLESAUCE. PALLIATIVE CARE RN SHIMON SPOKE WITH PT BRIEFLY THIS MORNING. REPOSITIONED Q2. BP HAS BEEN SOFT BUT MAP HAS REMAINED ABOVE 65. BLADDER SCAN PERFORMED DUE TO LOW URINE OUTPUT BUT PT ONLY HAD 77 MLS OF VOLUME IN BLADDER AT THAT TIME. BED LOCKED IN LOWEST POSIITON. CALL LIGHT LEFT WITHIN REACH.
--- NOTE | 2023-03-02 13:48 | NUR ---
Joint visit this afternoon in Pt's room with Pt's father Nikhil. Dr Scott, Dr Cook, Primary RN Tg, and this PC RN at bedside. Dr Scott reviews current plan of care and discusses concerns. Therapeutic listening offered as Nikhil reports believing Pt's mass in small intestines has cleared. Nikhil reports believing medication of lasix sent Pt spiraling down hill and is primary cause of her increased weakness and decline in condition. Don reports believing decline is not related to Pt's disease process. Dr Scott and Dr Cook will order repeat imaging to determine options. Palliative Care will remain available
--- NOTE | 2023-03-02 14:59 | NUR ---
SPOKE WITH TAMELA STREET RN, OKAY TO GIVE SOME ORAL MEDICATIONS FROM THIS MORNING CRUSHED IN APPLESAUCE GIVEN PT IS NO LONGER STRICT NPO. ATTEMPTED TO GIVE CLOZAPINE AND CELEXA CRUSHED IN APPLESAUCE. MEDS WERE CRUSHED IN ~2 TBSP OF APPLESAUCE AND PT WAS ONLY ABLE TO SWALLOW ABOUT ONE QUARTER OF THE TOTAL 2 TBSP. SUCTIONED OUT REST AND LEFT PT UPRIGHT FOR TIME BEING.
--- NOTE | 2023-03-02 17:39 | NUR ---
SHIFT SUMMARY. PT HAS BEEN SOMEWHAT MORE LETHARGIC THIS SHIFT THAN SHIFT PRIOR WITH THIS NURSE WITH MENTATION THAT APPEARS TO VARY DEPENDING ON TIME OF DAY AND PT LEVEL OF ALERTNESS. PT PASSED BEDSIDE SWALLOW EVAL THIS MORNING AND WAS CLEARED FOR PUREE DIET WITH THIN LIQUIDS AND PILLS CRUSHED IN APPLESAUCE. ATTEMPTED TO PASS PO MEDS CRUSHED IN APPLESAUCE EARLY THIS AFTERNOON BUT WAS UNSUCCESSFUL. SEE RELATED NOTE FOR DETAILS. PT HAD CT SCAN WITHIN PAST ~HOUR AND RESULTS HAVE BEEN READ. MAKING PT NPO AGAIN FOR TIME BEING DUE TO EVIDENCE OF CONTINUED ASPIRATION ON CT. REPOSITIONED Q2 WITH ORAL CARE PRN. PUREWICK TAKEN OUT UPON ARRIVAL BACK FROM CT DUE TO VERY MINIMAL URINE OUTPUT WITH RISK OF INCREASED AGITATION TO CHRIS AREA DUE TO PUREWICK. FLUIDS RUNNING THROUGHOUT SHIFT. PT REMAINS EDEMATOUS WITH VERY LITTLE URINE OUTPUT, 2 BLADDER SCANS PERFORMED THIS SHIFT WITH MAX URINE SHOWN ON SECOND BEING 122MLS. FATHER WAS AT BEDSIDE UNTIL MID AFTERNOON. PALLIATIVE CARE WAS ABLE TO SPEAK WITH FATHER AND FURTHER DISCUSS PT CONDITION. BED LOCKED IN LOWEST POSITION. CALL LIGHT LEFT WITHIN REACH. CONTINUING TO MONITOR.
--- NOTE | 2023-03-02 18:14 | NUR ---
TELEPHONE CALL TO DR. RANKIN TO DISCUSS CT RESULTS. CT PE STUDY AND HEPARIN ORDERED. DISCUSSED CONCERNS WITH ASPIRATION PER CT RESULTS, CHANGED TO NPO PER DR. RANKIN. DISCUSSED LITTLE URINE OUTPUT, ANASARCA, AND INABILITY TO GIVE NPO MEDS.
[2023-03-02 18:39] LABS: Anti-Xa UFH, PHA Monitoring <0.10 IU/mL; International Normalized Ratio 1.16; Prothrombin Time Results 12.1 Sec (9.7-11.5)
--- NOTE | 2023-03-02 22:00 | NUR ---
ASSUMED CARE/UPDATE THIS RN ASSUMED CARE OF PT AT 1900. PT LYING IN BED, LETHARGIC AND ORIENTED TO SELF ONLY. PT TOLD THIS RN THAT SHE IS "[place]" WHEN ASKED ABOUT HER LOCATION. BLOOD PRESSURE 60'S/40'S; MD NOTIFIED, ORDERS TO HOLD LASIX AND ADMINISTER ALBUMIN ORDERED. BP REMAINS SOFT FOLLOWING ALBUMIN INFUSION W/ MAP 50'S. CALL PLACED TO PT'S DAD, MINNA, WHO IS HER DESIGNATED POA. THIS RN UPDATED DON ON PT'S CURRENT CONDITION AND PERSISTENT HYPOTENSION. EXTENSIVE CONVERSATION DISCUSSING PROS AND CONS OF POTENTIAL TRANSFER TO ICU FOR MORE INTENSE TREATMENT VERSUS STAYING IN PCU AND CONTINUING TREATMENT VERSUS COMFORT CARE. MINNA STATES THAT HE IS NOT READY TO CONSIDER COMFORT CARE AT THIS TIME HE BELIEVES THE PT MAY "HEAL HERSELF." MINNA STATED THAT HE WOULD LIKE THE PT TO REMAIN IN PCU W/ CURRENT TREATMENT PLAN AND NOT TRANSFER TO ICU. CALL PLACED TO DR. ERNANDEZ W/ UPDATE. VERBAL ORDERS RECEIVED FOR DOBHOFF PLACEMENT AND MIDODRINE 10MG PER TUBE ONE TIME FOR HYPOTENSION.
--- NOTE | 2023-03-02 22:52 | NUR ---
DOBHOFF PLACEMENT DOBHOFF PLACED BY THIS RN W/O DIFFICULTY. PT TOLERATED WELL. AWAITING XR CONFIRMATION OF PLACEMENT.
[2023-03-03] VITALS (22 sets, daily range): BP systolic 61–110; BP diastolic 44–68
[2023-03-03 01:46] LABS: BASOPHILS ABSOLUTE AUTO 0.02 K/mm3 (0.00-0.23); BASOPHILS PERCENT AUTO 0 % (0-2); EOSINOPHILS ABSOLUTE AUTO 0.07 K/mm3 (0.00-0.68); EOSINOPHILS PERCENT AUTO 1 % (0-6); Hematocrit 19.9 % (33.0-51.0); Hemoglobin 6.6 g/dL (11.5-16.0); IMMATURE GRAN ABSOLUTE AUTO 0.11 K/mm3 (0.00-0.10); IMMATURE GRAN PERCENT AUTO 1 % (0-1); LYMPHOCYTES ABSOLUTE AUTO 0.53 K/mm3 (0.84-5.20); LYMPHOCYTES PERCENT AUTO 5 % (21-46); MONOCYTES ABSOLUTE AUTO 0.77 K/mm3 (0.16-1.47); MONOCYTES PERCENT AUTO 8 % (4-13); Mean Corpuscular HGB 31.4 pg (26.0-34.0); Mean Corpuscular HGB Conc 33.2 g/dL (31.5-36.5); Mean Corpuscular Volume 95 fL (80-100); Mean Platelet Volume 9.5 fL (9.1-12.4); NEUTROPHILS ABSOLUTE AUTO 8.68 K/mm3 (1.96-9.15); NEUTROPHILS PERCENT AUTO 85 % (41-73); Platelet Count 273 K/mm3 (150-400); RDW Coefficient Variation 14.1 % (11.7-14.2); RDW Standard Deviation 48.8 fL (35.1-46.3); White Blood Cell Count 10.18 K/mm3 (4.00-11.30)
[2023-03-03 02:05] LABS: Albumin, Blood 2.2 g/dL (3.4-5.0); Albumin/Globulin Ratio 0.8 (0.8-1.8); Bilirubin, Total 0.3 mg/dL (0.1-1.0); Bun/Creatinine Ratio 46.4 (12.0-20.0); Calcium, Blood 7.4 mg/dL (8.5-10.1); Creatinine, Blood 0.35 mg/dL (0.40-1.00); Globulin, Blood 2.6 g/dL (2.2-4.0); Magnesium, Blood 1.7 mg/dL (1.6-2.4); Phosphorus, Blood 2.7 mg/dL (2.5-4.9); Potassium, Blood 3.6 mmol/L (3.5-5.5); Total Protein, Blood 4.8 g/dL (6.4-8.2)
--- NOTE | 2023-03-03 02:05 | NUR ---
PHYSICIAN CONTACT CALL PLACED TO DR. ERNANDEZ REGARDING PT'S PERSISTENT HYPOTENSION. MAP MAINLY IN 50'S, SEE VITAL SIGN CHARTING. ORDERS RECEIVED FOR MIDODRINE 10MG Q6HR PER TUBE.
--- NOTE | 2023-03-03 02:41 | NUR ---
UPDATE PT W/ TEMPORAL TEMP OF 100.3, CLAMMY & SHIVERING. BLANKETS REMOVED, ICE PACKS APPLIED. TYLENOL ADMINISTERED PER EMAR VIA TUBE.
--- NOTE | 2023-03-03 05:15 | NUR ---
END OF SHIFT NOTE PT REMAINS LETHARGIC T/O SHIFT. ABLE TO STATE HER NAME, , AND THAT SHE IS IN [place] THIS AM. HR HAS DECREASED FROM 120'S AT START OF SHIFT TO 80-90'S. REMAINS NSR ON TELE. BP CONTINUES TO BE SOFT W/ MAP 55-65, MD AWARE OF THIS. MIDODRINE ADMINISTERED PER EMAR. SPO2 >95% ON 6L VIA NC. SMALL AMOUNT OF SPUTUM PRODUCTION W/ WEAK COUGH. FEBRILE THIS SHIFT, TYLENOL ADMINISTERED AND ICE PACKS APPLIED W/ TEMP DECREASE TO 99.3. SEE PREVIOUS NOTES REGARDING CONVERSATION W/ PT'S DAD ABOUT ESCALATION OF CARE. DOBHOFF IN PLACE TO ADMINISTER MEDICATIONS. PUREWICK CHANGED T/O SHIFT, MULTIPLE SMALL INCONTINENT BM'S IN ATTENDS. ATTENDS CHANGED TO KEEP C/D/I. PT REPOSITIONED Q2HRS AND PRN FOR PAIN. HGB 6.6 THIS AM, MD AWARE OF THIS, NO ORDERS AT THIS TIME. D5 1/2NS CURRENTLY INFUSING AT 50ML/HR PER EMAR. HEPARIN INFUSING AT 18U/KG/HR PER EMAR, BEING MANAGED BY PHARMACY. NO OTHER NEEDS AT THIS TIME. CALL LIGHT WITHIN REACH, BED IN LOWEST POSITION. WILL REPORT TO ONCOMING RN.
--- NOTE | 2023-03-03 10:58 | NUR ---
LATE NOTE. ASSUMED CARE OF PT AT 0710. PT HAS BEEN SOMNOLENT THIS SHIFT BUT EASILY AROUSABLE. PHYSICIANS VISITED THIS MORNING TO DISCUSS PLAN OF CARE WITH PT. PT DID NOT APPEAR TO COMPLETELY UNDERSTAND INTERMEDIATE RAMIFICATIONS OF DECISIONS BUT WAS ORIENTED AND ARTICULATE ENOUGH TO VOICE THAT SHE DID NOT WANT THE NG TUBE AND WOULD LIKE IT DCd QUICKLY POSSIBLE. REMOVED SHORTLY AFTER. PT HAD UNIT OF BLOOD ORDERED FOR THIS MORNING. INITIATED BLOOD AT ~0930. VITALS REMAINED STABLE BUT WITHIN ~40 MINUTES PT DEVELOPED VERY CONGESTED/WET COUGH AND HER LUNGS BECAME VERY COARSE. DCd BLOOD AND NOTIFIED DR. RANKIN. NO FURTHER ORDERS AT THAT TIME. PT FATHER ARRIVED SHORTLY AFTER AND SHIMON FROM WAS ABLE TO HAVE DISCUSSION WITH FATHER WHERE IT WAS DECIDED PT WOULD BE PUT ON COMFORT CARE MOVING FORWARD. SEE HIS NOTE FOR EXPANDED DETAILS. PT IS NOW RESTING COMFORTABLY IN BED. BED LOCKED IN LOWEST POSITION. CONTINUING TO MONITOR.
--- NOTE | 2023-03-03 10:59 | NUR ---
Arrived to Pt's room. Pt's Primary RNs Tg and Fredo at bedside assessing Pt. Pt's father Nikhil at bedside as well. Tg providing information regarding Pt's current clinical status and has discussed new findings from imaging. Offered therapeutic listening as father Nikhil reports speaking with Pt. He reports Pt stated she is not afraid to . Discussed considering comfort care and educated on comfort care philosophy. Nikhil is in agreement and would like to move forward with comfort measures only. Spoke with Dr Cook and discussed case. Placed comfort care order, comfort care order set, and D/C maintenance medications per V/O from Dr Cook. Palliative Care will remain available
--- NOTE | 2023-03-03 17:05 | NUR ---
SHIFT SUMMARY. PT HAS APPEARED MUCH MORE COMFORTABLE SINCE BEING TRANSITIONED TO COMFORT CARE THIS MORNING. PAIN/DISCOMFORT MANAGED VIA PRN ROXANOL WHICH HAS BEEN EFFECTIVE THUS FAR. SCOPOLAMINE PATCH IN PLACE. PT HAS HAD MUCH INCREASED URINE OUTPUT SINCE STARTING IV LASIX, ALL CHARTED APPROPRIATELY. APPEARS SLIGHTLY MORE ALERT TODAY THAN SHE DID YESTERDAY WITH THIS NURSE AND IS ABLE TO MAKE NEEDS KNOWN WELL. ABLE TO EAT SMALL AMOUNTS WITHOUT TOO MUCH DIFFICULTY ON REQUEST, FEEDER. FATHER WAS AT BEDSIDE FOR MOST OF SHIFT, NOTIFIED UPON LEAVING THAT WE WILL CALL HIM WITH ANY CHANGES. BED LOCKED IN LOWEST POSITION. CONTINUING TO MONITOR.
--- NOTE | 2023-03-04 04:35 | NUR ---
END OF SHIFT NOTE NO ACUTE CHANGES THIS SHIFT. PT REMAINS ON COMFORT CARE. ALERT, ORIENTED TO SELF AND PLACE. PT SMILING AND DENYING ANY PAIN T/O SHIFT. SCOPOLAMINE PATCH REMAINS IN PLACE. PT DENIES FEELING SHORT OF BREATH AND STATES SHE IS BREATHING "JUST FINE" ON 6L. REPOSITIONED NEEDED FOR PT COMFORT. PUREWICK REMAINS IN PLACE DRAINING YELLOW URINE. PT ABLE TO EAT SMALL BITES OF PUDDING W/ STAFF ASSISTANCE. PT ABLE TO COMMUNICATE ALL OF HER NEEDS CLEARLY AT THIS TIME. CALL LIGHT IN REACH, BED IN LOWEST POSITION. WILL REPORT TO ONCOMING DAY SHIFT RN.
--- NOTE | 2023-03-04 17:35 | NUR ---
SHIFT SUMMARY PT RESTING QUIETLY AT START OF SHIFT, BUT AWAKE. PT SOMETIMES DIFFICULT TO UNDERSTAND. PT ON COMFORT CARE PRIOR TO START OF SHIFT. PT DENIED PAIN MOST OF THE DAY, BUT DID REPORT SHOULDER PAIN THIS AFTERNOON. PT MEDICATED PER EMAR AND REPORTED IT EFFECTIVE. FAMILY IN TO VISIT MOST OF THE DAY AND OFF AND ON. LASIX GIVEN FOR BLE EDEMA. FEET ELEVATED ON PILLOWS. PT'S COCCYX FLOATED ON PILLOWS WELL. PT REMAINED COMFORTABLE WITH JUST REPOSITIONING MOSTLY. DR RANKIN IN TO SEE PT A COUPLE OF TIMES. NO NEW ORDERS PLACED. PT CURRENTLY EATING DINNER WITH ASSIST FROM TEACHER AIDE CLERICAL. NO C/O. CALL LT IN REACH.
--- NOTE | 2023-03-05 06:11 | NUR ---
SHIFT SUMMARY PATIENT REMAINS ON COMFORT CARE. TITRATED TO 2L NC FOR COMFORT. MEDICATED PER EMAR FOR PAIN AND ANXIETY DURING THE NIGHT. PATIENT CONVERSING WITH STAFF WHILE IN ROOM, UNABLE TO UNDERSTAND WORDS AT TIMES. REPOSITIONED Q2. PUREWICK IN PLACE DRAINING DARK YELLOW URINE. NO OTHER CHANGES DURING THE NIGHT. WILL REPORT TO DAY SHIFT RN.
--- NOTE | 2023-03-05 09:34 | NUR ---
Comfort Care Visit Spoke with Primary RN Teresita and discussed case. Plan to offer pain medication for back pain. Pt resting in bed upon arrival. Offered supportive visit with gentle voice. Pt confirms pain in back. Pt reports no other concerns at this time. Palliative Care will remain available
--- NOTE | 2023-03-05 13:09 | NUR ---
TRANSFER TO MEDICAL PT COMFORT CARE STATUS. PT ALERT. WHEN ASKING ORIENTATION Qs, PT UNABLE TO ANSWER Qs, STATING "I'M HAVING A HARD TIME." PT NOTED TO BE TALKING TO SELF AT TIMES, AT ONE POINTING STATING "I LOVE YOU MOM" THEN CONTINUING TO TALK ABOUT A CAT, BUT NOT TALKING TO ANYONE IN RM. PT DENIES PAIN/DISCOMFORT. PT AT ONE POINT REPORTING PAIN "IN MY ASS", PT REPOSITIONED W/ PT REPORT OF NO FURTHER DISCOMFORT. PT FATHER TO , QUESTIONING COMFORT CARE STATUS. REVIEWED EVENTS W/ PT FATHER & TREATMENTS PROVIDED & PREVIOUS DISCUSSIONS FOR COMFORT CARE TREATMENT. PT FATHER FORGETFUL, INFORMATION REITERATED MULTIPLE TIMES. PT FATHER THEN SPEAKING OF HAVING OUTER BODY EXPERIENCE ONE YEAR OLD THAT THEN LED HIM TO KNOW MORE ABOUT PYSCHOLOGY THAN HIS OWN MOTHER WHILE HE WAS 1 YR OLD. PT STATING "I HAVE FRIENDS THAT CAN LOOK AT HER (POINTING TO PT) AND KNOW EXACTLY WHAT IS WRONG W/ HER AND HEAL HER, THEY'RE IN THE PSYCHIC WORLD LIKE ME. SHE HAD A TWISTED DUEDENAL THAT THEY HEALED. IT'S GONE NOW, BECAUSE OF THEM." PT SPEAKING OF PYSCHIC ABILITIES & CHAKRAS. PT STATING W/ COMFORT CARE, "YOU MIGHT WELL TAKE HER TO THE PARKING LOT AND HOSE HER." COMFORT CARE REXPLAINED TO PT FATHER. PT FATHER NOT UNDERSTANDING DESPITE ATTEMPTS. PALLIATIVE CARE RN & HOSPITALIST NOTIFIED OF PT FATHER Qs/CONCERNS. PALLIATIVE RN W/ PLAN TO SEE PT & PT FATHER AGAIN TODAY. REPORT GIVEN TO ACCEPTING MEDICAL FLOOR RN. PT TAKEN TO 303 BY BED @ APPROX 1315.
--- NOTE | 2023-03-05 13:40 | NUR ---
LATE ENTRY/PCU TRANSFER 1245: RECEIVED REPORT FROM SENAIT MCLEAN. 1315: RECEIVED PT VIA BED TRANSFER TO ROOM 303. MADE COMFORTABLE. IS COMFORT CARE, BEDBOUND AT BASELINE WITH MS. DÍAZ IN PLACE AND FUNC WELL. PIV X 2 IN R ARM. MEPIPLEX ON BILAT KNEES. BILAT HEELS ELEVATED ON PILLOWS. PT C/O PAIN UPON ARRIVAL, PAIN MEDS GIVEN PER EMAR. PT'S FATHER AT BEDSIDE AND IS MEETING WITH SHIMON PACHECO PALLIATIVE CARE RN.
--- NOTE | 2023-03-05 14:37 | NUR ---
F/U visit this afternoon. Pt resting in bed upon arrival. Pt's father Nikhil at bedside. Offered therapeutic listening as Don expresses concerns regarding plan of care. He reports misunderstanding plan when Pt was placed on comfort care. Continued therapeutic listening. Towards end of visit this RN summarized Don's concerns with him. Nikhil is requesting Pt continue being treated until Pt becomes imminent then he will consider withdrawing care. He would like Pt to receive adequate nutrition, receive antibiotics and blood thinners. He also reports if recommended he would want Pt to have G-tube placement. Spoke with Dr Scott and discussed case. Dr Scott will re-start treatment plan but no plan for NG tube placement as Pt was requesting last NG tube be D/C. Dr Scott will continue comfort medications. Spoke with Primary RN Shelley and discussed case. Palliative Care will remain available
[2023-03-05 14:46] VITALS: BP 80/58
--- NOTE | 2023-03-05 17:45 | NUR ---
SHIFT SUMMARY A&O X 1-2. BP'S RUN LOW, MD PROVIDED PARAMETERS REGARDING BP & HR. OK TO NOT CALL MD FOR SBP <70 OR HR >140. MD CANCELLED COMFORT CARE ORDERS PER WISHES OF PT'S DECISION MAKER, HER FATHER. PT IS A DNR. PT HAS RESTED COMFORTABLY SINCE TRANSFER. NO COMPLAINTS. DOES REQUIRE ASSISTANCE FOR EATING. PUREWICK REMAINS IN PLACE, FUNCTIONING WELL. BED IN LOW POSITION, CALL LIGHT WITHIN REACH.
[2023-03-05 19:30] VITALS: BP 84/56
[2023-03-06 04:09] VITALS: BP 104/80
--- NOTE | 2023-03-06 04:41 | NUR ---
SHIFT SUMMARY: PT IS ADMITTED FOR SEPSIS AND IS A DNR. SHE IS ALERT AND ABLE TO MAKE SOME NEEDS KNOWN. ADLs ARE 1-2P DEPENDING ON ACTIVITY. SHE REMAINED IN BED THROUGH SHIFT. DENIES PAIN OR DISCOMFORT WHEN ASKED. IVs TO RIGHT ARE ARE PATENT AND HAVE DRESSINGS THAT ARE CDI. IS ON 2L NC.
[2023-03-06 07:46] VITALS: BP 119/93
--- NOTE | 2023-03-06 11:41 | NUR ---
LATE ENTRY 1040: PT GIVEN BED BATH, LINENS CHANGED & WOUND DRESSINGS CHANGED. PUREWICK CHANGED & BREIFS CHANGED. PT C/O PAIN AFTER ALL THE MOVEMENT FOR ALL THE ABOVE. MEDICATED FOR C/O PAIN PER EMAR. PT REPOSITIONED FOR COMFORT WITH PILLOWS PT'S FATHER IN TO VISIT. PT CONTINUES TO CHOKE & GAG WITH ANY FOOD OR LIQUIDS. MEDS CRUSHED & GIVEN IN APPLESAUCE.
--- NOTE | 2023-03-06 19:42 | NUR ---
SHIFT SUMMARY PT REMAINS CONFUSED OFF & ON. A&O X 1-2 AT TIMES. CONTINUES TO ASPIRATE ON FOODS AND LIQS, ALTHOUGH PT WANTS TO TRY TO EAT & DRINK. DIET IS MECH SOFT. TAKES MEDS CRUSHED IN APPLESAUCE. ON 2 L'S O2 WITH SATS >95%. SBP HAS BEEN >100 AND HR <110. PT'S FATHER VISITED TODAY. NO ACUTE CHANGES THIS SHIFT. HAS RESTED QUIETLY OFF & ON. BED IN LOW POSITION, CALL LIGHT WITHIN REACH. CHECKED ON PT FREQUENTLY.
[2023-03-06 21:04] VITALS: BP 100/79
[2023-03-07 05:06] LABS: BASOPHILS ABSOLUTE AUTO 0.02 K/mm3 (0.00-0.23); BASOPHILS PERCENT AUTO 0 % (0-2); EOSINOPHILS ABSOLUTE AUTO 0.07 K/mm3 (0.00-0.68); EOSINOPHILS PERCENT AUTO 1 % (0-6); Hematocrit 26.8 % (33.0-51.0); Hemoglobin 8.5 g/dL (11.5-16.0); IMMATURE GRAN ABSOLUTE AUTO 0.11 K/mm3 (0.00-0.10); IMMATURE GRAN PERCENT AUTO 1 % (0-1); LYMPHOCYTES PERCENT AUTO 4 % (21-46); MONOCYTES ABSOLUTE AUTO 0.95 K/mm3 (0.16-1.47); MONOCYTES PERCENT AUTO 7 % (4-13); Mean Corpuscular HGB 32.2 pg (26.0-34.0); Mean Corpuscular HGB Conc 31.7 g/dL (31.5-36.5); Mean Corpuscular Volume 102 fL (80-100); NEUTROPHILS ABSOLUTE AUTO 12.53 K/mm3 (1.96-9.15); NEUTROPHILS PERCENT AUTO 88 % (41-73); Platelet Count 615 K/mm3 (150-400); RDW Coefficient Variation 14.5 % (11.7-14.2); RDW Standard Deviation 52.5 fL (35.1-46.3); Red Blood Cell Count 2.64 M/mm3 (3.80-5.20); White Blood Cell Count 14.28 K/mm3 (4.00-11.30)
[2023-03-07 05:47] LABS: Bun/Creatinine Ratio 29.4 (12.0-20.0); Calcium, Blood 7.9 mg/dL (8.5-10.1); Creatinine, Blood 0.48 mg/dL (0.40-1.00); Potassium, Blood 3.1 mmol/L (3.5-5.5)
--- NOTE | 2023-03-07 06:08 | NUR ---
REPORT RECEIVED VERIFIED, PT IN AND OUT OF CONFUSION BUT CAN EXPRESS IMEDIATE NEEDS. VERY TINY PT DIFFICULT TO REPOSITION BECAUSE OF MS MEDICAL HISTORY, PT REFUSED MOST PAIN MED SO DOESNT LIKE TO BE TURNED. PT REQUESTED LIQUIDS BUT IS AT RISK OF ASPIRATION WHICH PT ISNT CONCERNED ABOUT , I EXPLAINED TO PT I WOULD TRY THICKENED LIQUIDS AND SHE AGREED, SHE KERA WELL WITH SOME COUGHING. NEEMA REDD FOR THIS AM. ROXANOL FINALLY AGREED TO AND PT TOOK WITH VERY LITTLE RELIEF FROM PAIN, PT REFUSED FENTANYL. WILL CONT TO MONITOR PT
[2023-03-07 07:15] VITALS: BP 113/81
--- NOTE | 2023-03-07 16:01 | NUR ---
WOUND CARE L HIP BEDSIDE BEBRIDEMENT BY DR. EVANS. PLEASE CLEANSE WOUND AND APPLY DAKINS SOAKED WET TO DRY GAUZE X3 DAYS. STOP TUESDAY, THEN CLEANSE WITH DERMAL WOUND APPLY CALCIUM ALGINATE TO WOUND BED AND COVER BORDERED GAUZE. BL KNEE AND COCCYX WOUND CLEANSE DERMAL WOUND THEN APPLY HYDROGEL TO WOUND BED COVER BORDERED FOAM. CHANGE EVERY OTHER DAY. NEXT CHANGE TUE.
[2023-03-07 16:12] VITALS: BP 76/59
--- NOTE | 2023-03-07 18:09 | NUR ---
SHIFT SUMMARY: PT A&O X1-2. PLEASANT AND COOPERATIVE WITH CARE. PT C/O PAIN BUT DENIES PAIN MEDICATION. ATTEMPTED TO GIVE PO MEDICATIONS IN THIS SHIFT BUT PT COUGHED AND CHOKED ON VERY SMALL AMOUNT. SPEECH EVAL COMPLETED BUT DID NOT PASS. PALLIATIVE HAD LONG DISCUSSION WITH PT FATHER REGARDING HEALTH STATUS OF PT AND HOW TO MOVE FORWARD. FATHER STILL BELIEVES PT WILL GET BETTER AND WANTS TO HOLD OFF ON COMFORT MEASURES. BARIUM SWALLOW TO BE COMPLETED TOMORROW. L. HIP DEBRIDEMENT COMPLETED BY DR. EVANS AT BEDSIDE. WOUND ORDERS IN CHART. CALL LIGHT IN REACH. BED IN LOWEST POSITION.
[2023-03-07 19:32] VITALS: BP 80/54
[2023-03-08 04:03] VITALS: BP 113/85
--- NOTE | 2023-03-08 05:38 | NUR ---
SHIFT SUMMARY PT ALERT BUT CONFUSED. HARD TO UNDERSTAND RESPONSES DUE TO MUMBLED SPPECH. PT COMPLAINED OF KNEE/HIP PAIN--MEDICATED PER EMAR. PT ON 2L O2 VIA NC. MEPILEX TO COCCYX CHANGED THIS SHIFT. PT IS NPO DUE TO ASPIRATION RISK AWAITING BARIUM SWALLOW EVAL. ORAL CARE, SUCTIONING, AND REPOSITIONED T/O SHIFT. BED KEPT IN LOWEST POSITION WITH CALL LIGHT IN REACH. CLEAN DRY ATTENDS IN PLACE. WILL CONTINUE TO MONITOR UNTIL SHIFT END.
[2023-03-08 06:24] LABS: BASOPHILS ABSOLUTE AUTO 0.01 K/mm3 (0.00-0.23); BASOPHILS PERCENT AUTO 0 % (0-2); EOSINOPHILS ABSOLUTE AUTO 0.03 K/mm3 (0.00-0.68); EOSINOPHILS PERCENT AUTO 0 % (0-6); Hematocrit 24.4 % (33.0-51.0); Hemoglobin 7.6 g/dL (11.5-16.0); IMMATURE GRAN ABSOLUTE AUTO 0.11 K/mm3 (0.00-0.10); IMMATURE GRAN PERCENT AUTO 1 % (0-1); LYMPHOCYTES ABSOLUTE AUTO 0.74 K/mm3 (0.84-5.20); LYMPHOCYTES PERCENT AUTO 7 % (21-46); MONOCYTES ABSOLUTE AUTO 1.04 K/mm3 (0.16-1.47); MONOCYTES PERCENT AUTO 9 % (4-13); Mean Corpuscular HGB 31.3 pg (26.0-34.0); Mean Corpuscular HGB Conc 31.1 g/dL (31.5-36.5); Mean Corpuscular Volume 100 fL (80-100); Mean Platelet Volume 9.2 fL (9.1-12.4); NEUTROPHILS ABSOLUTE AUTO 9.23 K/mm3 (1.96-9.15); NEUTROPHILS PERCENT AUTO 83 % (41-73); Platelet Count 593 K/mm3 (150-400); RDW Coefficient Variation 14.4 % (11.7-14.2); RDW Standard Deviation 52.6 fL (35.1-46.3); Red Blood Cell Count 2.43 M/mm3 (3.80-5.20); White Blood Cell Count 11.16 K/mm3 (4.00-11.30)
[2023-03-08 06:43] LABS: Albumin, Blood 1.8 g/dL (3.4-5.0); Albumin/Globulin Ratio 0.5 (0.8-1.8); Bilirubin, Total 0.4 mg/dL (0.1-1.0); Bun/Creatinine Ratio 27.2 (12.0-20.0); Calcium, Blood 7.4 mg/dL (8.5-10.1); Creatinine, Blood 0.51 mg/dL (0.40-1.00); Globulin, Blood 3.3 g/dL (2.2-4.0); Potassium, Blood 3.2 mmol/L (3.5-5.5); Total Protein, Blood 5.1 g/dL (6.4-8.2)
[2023-03-08 07:24] VITALS: BP 120/91
[2023-03-08 17:45] VITALS: BP 123/109
--- NOTE | 2023-03-08 17:56 | NUR ---
Case Conference Note Discussion with Dr Scott, Ernst Bojorquez from [employer], this PC RN, and PC RN Mary. Reviewed case and concerns. Dr Scott and this PC RN had conversation with Pt's father outside of Pt's room regarding goals of care and recommendations. After lengthy discussion father is agreeable to take Pt home with hospice services. Palliative Care will remain available
--- NOTE | 2023-03-08 18:37 | NUR ---
SHIFT SUMMARY: PT ORIENTED X1-2. PT HAVING VISUAL HALLUCINATIONS THIS SHIFT. PT STATES SHE SEES HER MOM IN ROOM. IV ATIVAN ORDERED THIS EVENING FOR ANXIETY. PT COMPLETED BARIUM SWALLOW THIS AM AND DID NOT GO WELL. PT REMAINS NPO. PT FATHER HAD LONG TALK WITH MD, PALLIATIVE, RESIDENTS, AND MYSELF REGARDING DECISIONS OF HEALTHCARE PROCEEDING ASPIRATION EVENTS. FATHER WILLING TO PLACE PT ON HOSPICE. PLANS FOR PT TO POSSIBLY D/C TOMORROW. PT C/O PAIN THIS SHIFT BUT DENIED PAIN MEDICATION. CALL LIGHT IN REACH. BED IN LOWEST POSITION.
[2023-03-08 19:12] VITALS: BP 88/69
[2023-03-09 03:29] VITALS: BP 106/79
--- NOTE | 2023-03-09 04:13 | NUR ---
SHIFT SUMMARY PT A&O X 1-2, SEEMS CONFUSED. PT HAVING SOME VISUAL HALLUCINATIONS AND CALLING OUT TO THEM. PT REMAINS NPO AND REFUSED HER BLOOD THINNER SHOT LAST EVENING. THE PLAN IS TO DISCHARGE PT TO HOSPICE TODAY. CALL LIGHT IS WITHIN PT REACH AND BED IN LOWEST POSITION.
[2023-03-09 07:47] VITALS: BP 111/89
[2023-03-09 07:48] VITALS: BP 111/89
[2023-03-09] MEDS ORDERED: TYLENOL PR (11:21)
[2023-03-09] MEDS ORDERED: MEDIHONEY TOP (11:22)
[2023-03-09] MEDS ORDERED: Ativan1 MG PO (11:23)
[2023-03-09] MEDS ORDERED: MORP20L PO (11:24)
[2023-03-09] MEDS ORDERED: TRANSDERM-SCOP1 EA10 TD (11:24)
[2023-03-09] MEDS ORDERED: DAKIN S (11:24)
[2023-03-09] MEDS ORDERED: ONDA4ODT MM (11:24)
[2023-03-09] MEDS ORDERED: ELIQUIS5 M2 PO (11:25)
--- NOTE | 2023-03-09 12:57 | NUR ---
DISCHARGE NOTE- PT WAS PROVIDED WITH PRINTED DISCHARGE INSTRUCTIONS. NO FAMILY CAME TO SEE HER TODAY, NONE PRESENT FOR DISCHARGE EDUCATION, PT UNABLE TO SIGN OR UNDERSTAND DISCHARGE. IV REMOVED AT THE TIME OF DISCHARGE, ALL DRESSINGS CHANGED PRIOR TO TRANSFER TO [facility] FOR TRANSPORT, ATTENDS CLEAN AND DRY AT THE TIME OF DISCHARGE. PT WAS TAKEN HOME VIA [facility] FOR HOSPICE ADMISSION. NO S&S OF DISTRESS AT THE TIME OF DISCHARGE.
== END 2023-03-09 11:54 | disposition home health service (06) | DRG 853 ==
LOC: ER 20:05 → MEDS 23:33 → PCU 23:33 → EDBEDREQSVC 02-27 00:53 → PCU 02-27 01:13 → MEDS 03-05 13:14
PROVIDERS: Emergency Medicine; Family Medicine; Student in an Organized Health Care Education/Training Program; ADMIT Internal Medicine
PROC: 30233N1 Transfusion of Nonautologous Red Blood Cells into Peripheral Vein, Percutaneous Approach (ICD-10-PCS; principal; 2023-02-26)
PROC: 0DH67UZ Insertion of Feeding Device into Stomach, Via Natural or Artificial Opening (ICD-10-PCS; 2023-02-26)
PROC: 3E03329 Introduction of Other Anti-infective into Peripheral Vein, Percutaneous Approach (ICD-10-PCS; 2023-02-26)
PROC: 0JBP0ZZ Excision of Left Lower Leg Subcutaneous Tissue and Fascia, Open Approach (ICD-10-PCS; 2023-03-07)
DX: A41.50 Gram-negative sepsis, unspecified (principal); E43 Unspecified severe protein-calorie malnutrition; G92.8 Other toxic encephalopathy; J18.9 Pneumonia, unspecified organism; J96.01 Acute respiratory failure with hypoxia; J69.0 Pneumonitis due to inhalation of food and vomit; I26.94 Multiple subsegmental thrombotic pulmonary emboli without acute cor pulmonale; E87.0 Hyperosmolality and hypernatremia; N39.0 Urinary tract infection, site not specified; R64 Cachexia; Z68.1 Body mass index [BMI] 19.9 or less, adult; J98.11 Atelectasis; R65.20 Severe sepsis without septic shock; G35 Multiple sclerosis; D64.9 Anemia, unspecified; L89.220 Pressure ulcer of left hip, unstageable; F12.90 Cannabis use, unspecified, uncomplicated; E87.6 Hypokalemia; L89.890 Pressure ulcer of other site, unstageable; Z66 Do not resuscitate; K31.9 Disease of stomach and duodenum, unspecified; F41.9 Anxiety disorder, unspecified; L89.159 Pressure ulcer of sacral region, unspecified stage; Z79.899 Other long term (current) drug therapy; Z74.01 Bed confinement status; Z51.5 Encounter for palliative care; Z91.018 Allergy to other foods; Z11.52 Encounter for screening for COVID-19
CPT/HCPCS: 0241U; 36415; 36430; 51701; 71045; 71260; 74177; 74230; 76770; 80048; 80053; 81001; 82330; 82803; 83605; 83735; 83880; 84100; 84484; 85025; 85520; 85610; 85730; 86850; 86900; 86901; 86923; 87040; 87077; 87086; 87186; 92526; 92610; 92611; 93005; 93010; 93306; 94640; 94664; 94760; 94762; 96361-59; 96365-59; 96375; 99285-25; A9270; J0456; J0696; J1644; J1650; J1940; J2060; J3010; J3411; J3480; J7030; J7042; J7050; J7120; P9016; P9047; Q9967